=== PATIENT | female | born 1960 | race African-American/Black ===

== ENCOUNTER 2017-03-04 12:41 | Emergency (ER) | payer MEDICAID ==
[~2017-03-04] VITALS: Ht 162.6 cm; Wt 45.0 kg
[~2017-03-04 12:41] MED LIST: AMLO10TA80; CHLO25TA2; GLIP10TA10; METF850T2; SEROQUEL
[2017-03-04 12:47] VITALS: BP 115/80
== END 2017-03-04 16:44 | disposition left against medical advice (07) ==
LOC: ER 13:17
DX: Z53.21 Procedure and treatment not carried out due to patient leaving prior to being seen by health care provider (principal); E11.9 Type 2 diabetes mellitus without complications; I10 Essential (primary) hypertension; F14.10 Cocaine abuse, uncomplicated; Z93.3 Colostomy status; Z85.05 Personal history of malignant neoplasm of liver

== ENCOUNTER 2017-09-08 16:21 | Emergency (ER) | payer MEDICAID ==
[~2017-09-08] VITALS: Ht 162.6 cm; Wt 50.0 kg
[2017-09-08 16:23] VITALS: BP 100/63
== END 2017-09-08 16:39 | disposition left against medical advice (07) ==
LOC: ER 16:35
DX: J02.9 Acute pharyngitis, unspecified (principal); Z53.21 Procedure and treatment not carried out due to patient leaving prior to being seen by health care provider